=== PATIENT | male | born 1980 | race Caucasian/White ===

== ENCOUNTER 2025-08-16 13:59 | Emergency (ER) | payer OTHER, SELFPAY ==
[2025-08-16 14:09] VITALS: BP 156/86
[2025-08-16 14:35] LABS: Hematocrit 36.0 % (39.0-52.0); Hemoglobin 12.3 g/dL (13.0-18.0); Mean Corp Hgb Conc. 34.2 g/dL (33.0-37.0); Mean Corpuscular Volume 82.4 fL (80.0-94.0); Nucleated Red Blood Cells % 0 % (-); Platelet Count 350 10^3/uL (130-400); Red Cell Dist. Width 12.1 % (11.5-14.5)
[2025-08-16 14:56] LABS: ALT (SGPT) 36 U/L (0-50); AST (SGOT) 24 U/L (17-59); Albumin 4.6 g/dl (3.5-5.0); Alkaline Phosphatase 88 U/L (38-126); Blood Urea Nitrogen 16 mg/dl (9-20); Calcium 9.4 mg/dl (8.4-10.2); Carbon Dioxide 29 mmol/L (22-30); Chloride 98 mmol/L (98-107); Glucose 231 mg/dl (70-99); Potassium 4.2 mmol/L (3.5-5.1); Sodium 136 mmol/L (135-145); Total Protein 7.2 g/dl (6.3-8.2); eGFR > 60.00
[2025-08-16 15:05] LABS: Troponin I < 0.012 ng/ml
[2025-08-16 18:13] LABS: D-Dimer 0.33 ug/mlFEU (0.00-0.50)
[2025-08-16] MEDS: DUONEB 3 ML INH (18:13)
--- NOTE | 2025-08-16 19:18 | ED.GENMED ---
History of Present Illness
General
Chief Complaint: Breathing Problem
Source: patient
Time Seen by Provider: 08/16/25 16:30
History of Present Illness
History of Present Illness:
Note:
CHIEF COMPLAINT(S)
Difficulty breathing.
HISTORY OF PRESENT ILLNESS
The patient is a 44-year-old male with a history of asthma, presenting with difficulty breathing. He reports that this occurs occasionally, often around this time of the year, and he last experienced similar symptoms in 2019. During that episode,
his typical treatment with a nebulizer using albuterol was ineffective, but he found relief with a steroid prescription. This time, he saw a new doctor who noted that his pulse oximetry readings were low and his heart rate was slightly elevated,
prompting a referral to rule out a pulmonary embolism. The patient also mentions experiencing a 'copper taste' during physical activities in the past, which is not currently accompanied by symptoms such as hemoptysis, pleuritic chest pain, or signs
of a deep vein thrombosis.
PAST MEDICAL AND SURGICAL HISTORY
The patient has a history of asthma, as noted, and was diagnosed with type 1 diabetes four years ago.
CHRONIC MEDICAL CONDITIONS SIGNIFICANTLY AFFECTING CARE
The patient has poorly controlled type 1 diabetes, as he describes struggling to effectively manage the condition. He monitors his blood glucose frequently but is not currently using an insulin pump, despite expressing interest.
SOCIAL HISTORY
The patient admits to previous smoking and notes he has quit smoking cigarettes.
REVIEW OF SYSTEMS
- Respiratory: Difficulty breathing, history of asthma, bilateral wheezing noted.
- Cardiovascular: No reports of chest pain or signs of deep vein thrombosis.
- General: No recent travel reported, denies signs like hemoptysis or unexplained swelling.
- Gastrointestinal: Reports a copper taste frequently experienced during physical exertion.
PHYSICAL EXAM
General: Alert, no acute distress.
Skin: Warm, dry.
Head: Normocephalic, atraumatic.
Neck: Supple, trachea midline.
Eye Ears, nose, mouth and throat: Oral mucosa moist.
Cardiovascular: Heart rate noted as 80s, no significant murmurs, no edema.
Respiratory: Bilateral wheezing present, respirations are non-labored.
Gastrointestinal: Abdomen nondistended.
Back: Normal range of motion, normal alignment.
Musculoskeletal: Normal range of motion, normal strength.
Neurological: Alert and oriented to person, place, time, and situation, no focal neurological deficit observed.
Psychiatric: Cooperative, appropriate mood and affect.
PROBLEM LIST
- Acute: Difficulty breathing, potential pulmonary embolism.
- Chronic: Type 1 diabetes, asthma.
PLAN
1. Perform a D-dimer blood test to rule out pulmonary embolism.
2. Administer breathing treatments to relieve wheezing and assess for improvement.
3. Monitor blood glucose levels, especially with concurrent steroid administration prescribed by the patients doctor.
4. Discuss and consider further management of diabetes, including potential benefits of insulin pump therapy and the importance of exercise.
DIFFERENTIAL DIAGNOSIS
The Differential Diagnosis includes, in no particular order and is not limited to:
1. Asthma exacerbation
2. Chronic Obstructive Pulmonary Disease (COPD) exacerbation
3. Pulmonary embolism
4. Bronchitis
5. Pneumonia
6. Heart failure
7. Gastroesophageal reflux disease (GERD)
8. Foreign body aspiration
9. Anxiety-related dyspnea
10. Interstitial lung disease
Disposition:
SUMMARY OF ENCOUNTER
The patient, a 44-year-old male with a known history of asthma, presented to the emergency department with difficulty breathing. Despite initial concerns about a potential pulmonary embolism (PE), the patient had a negative D-dimer test and was
unlikely to have a PE based on clinical presentation and auscultation revealing wheezing. While awaiting chest x-ray results, the patient decided to leave; however, the chest x-ray showed no concerning abnormalities. A message was left for the
patient, noting that he had already been prescribed steroids by his primary care physician. Laboratory results were largely normal except for hyperglycemia, which aligns with his known history of diabetes.
DISPOSITION
Discharge
ASSESSMENT
The patient is experiencing an asthma exacerbation complicated by poorly controlled diabetes.
PLAN
Follow-up with primary care physician to monitor asthma and diabetes management. Continue prescribed steroid treatment and use of albuterol inhaler as needed. Advise the patient to maintain regular follow-ups for diabetes management, potentially
exploring the use of an insulin pump.
INDEPENDENT REVIEW OF LABS AND INTERPRETATION OF TESTS
My independent review of CBC indicates a normal white blood cell count of 8.6 and hemoglobin 12.3. The chemistry panel shows hyperglycemia at 231 mg/dL.
MEDICAL DECISION MAKING
-Number and Complexity of Problems Addressed: Chronic conditions affecting care include asthma and type 1 diabetes. The differential diagnosis includes asthma exacerbation, chronic obstructive pulmonary disease (COPD) exacerbation, pulmonary
embolism, bronchitis, pneumonia, heart failure, gastroesophageal reflux disease (GERD), foreign body aspiration, anxiety-related dyspnea, and interstitial lung disease.
-Data:
Category 1
My independent interpretation of the chest x-ray indicates no concerning abnormalities despite the patients premature departure.
My independent review of labs shows a normal white blood cell count and hemoglobin, with noted hyperglycemia, likely related to the patients known diabetic condition.
-Risk:
Consideration of Admission/Observation: Escalation of care including admission/observation was considered given the complexity and risk of the patients presenting complaint, exam findings, and underlying comorbidities. However, ultimately, I feel
the patient is safe for outpatient management with close follow-up. Reasoning: Work-up reassuring, does not reveal any acute life/organ-threatening processes, patients symptoms well-controlled upon reevaluation, reexamination is reassuring, vitals
are stable, patient agreeable with discharge, reliable for follow-up.
DIAGNOSIS
- Asthma exacerbation (J45.901)
- Type 1 diabetes mellitus with hyperglycemia (E10.65)
Past History
Past History
ED Past Medical History: Asthma, IDDM and Psychiatric (Depression)
ED Past Surgical History: None
Social History
Personal: Single
Phy Exam
Physical Exam
Physical Exam:
.
Course
Orders/Labs/Results
Orders:
Orders
08/16/25 14:13
Electrocardiogram (*1) Urgent
Reason for Study: Other
Other Reason for Exam: Respiratory Distress
EKG- Treatment ONCE
CR Chest - 2 Views Urgent
Comment:
Reason For Exam: respiratory distress
08/16/25 14:20
Complete Blood Count/With Diff Urgent
Comprehensive Metabolic Panel Urgent
NT-proBNP Stat
Troponin I Urgent
08/16/25 17:40
Ipratropium/Albuterol Sulfate [Duoneb] 3 ml INH R NOW STA
08/16/25 17:48
D-Dimer Urgent
Abnormal Lab Results
08/16/25
14:20
RBC 4.37 L 10^6/uL
(4.70-6.10)
Hgb 12.3 L g/dL
(13.0-18.0)
Hct 36.0 L %
(39.0-52.0)
Absolute Monos (auto) 0.7 H 10^3/uL
(0.1-0.6)
Absolute Eos (auto) 0.9 H 10^3/uL
(0-0.7)
Lymphocytes % 19.2 L %
(20.5-51.1)
Eosinophils % 10.2 H %
(0-6)
Glucose 231 H mg/dl
(70-99)
08/16/25 14:20
08/16/25 14:20
Vital Signs
Initial and Last Documented VS:
Initial Vital Signs
Pulse Resp BP Pulse Ox
98 16 156/86 98
08/16/25 14:09 08/16/25 14:08/16/25 14:09 08/16/25 14:09
Last Documented Vital Signs
Pulse Resp BP Pulse Ox
98 16 156/86 98
08/16/25 14:08/16/25 14:09 08/16/25 14:09 08/16/25 14:09
*Pulse Oximetry
SaO2: 98
Oxygen Mode of Delivery: Room air
Patient hypoxic: no
*Critical Care Note
Total Time (30-74mins, 75-104mins- exclusive of procedures): Not Applicable
ED Attending Note
-
Portions of this chart may have been created with voice recognition software.� Occasional wrong word or��sound alike� substitutions may have occurred due to the inherent limitations of voice recognition software.
Discharge Plan
Departure
Patient Disposition: Home (Routine Discharge)
Date of Disposition: 08/16/25
Time of Disposition: 19:21
Patient with high blood pressure during this ER visit?: Yes
Discharge Problem:
Exacerbation of reactive airway disease
Prescriptions:
No Action
omeprazole 40 MG capsule,delayed release(DR/EC)
40 mg PO DAILY
methadone [Methadose] 10 MG/ML concentrate
230 mg PO DAILY
Patient Comments:
03/02/18: dose confirmed with [facility] [phone]
albuterol sulfate 1 PUFF HFA aerosol inhaler
2 puff inhalation R Q4HPRN PRN (Reason: sob)
insulin glargine [Lantus U-100 Insulin] 100 UNIT/ML solution
50 units SC HS
insulin lispro [Admelog U-100 Insulin lispro] 100 UNIT/ML solution
10 - 15 unit SC TID
Wixela
1 puff inhalation BID
prednisone 50 MG tablet
50 mg PO DAILY Qty: 5 0RF
albuterol sulfate 1 PUFF HFA aerosol inhaler
2 puff inhalation R Q4HPRN PRN (Reason: shortness of breath, wheeze) Qty: 1 0RF
prednisone 10 MG tablet
10 mg PO .TAPER Qty: 30 0RF
Rx Instructions:
Take 40mg daily x3days, 30mg daily x3days,
20mg daily x3days, 10mg daily x3days.
ipratropium-albuterol 3 ML solution for nebulization
3 ml inhalation QID Qty: 60 0RF
doxycycline hyclate 100 MG capsule
100 mg PO Q12 Qty: 20 0RF
Referrals:
Katherin Howard NP [Family Provider, Family Practice]
Interventions
Interventions:
*Risk Screen - Suicide Last Done: 08/16/25 14:09
*Neglect/Abuse Screening Last Done: 08/16/25 14:09
Discharge Date and Time
Print Language: TAJIK
== END 2025-08-16 19:37 | disposition home or self-care (01) ==
LOC: EMR 13:59
PROVIDERS: Student in an Organized Health Care Education/Training Program; EMERGENCY PHYSICIAN Emergency Medicine; FAMILY PHYSICIAN Nurse Practitioner Family
DX: J45.901 Unspecified asthma with (acute) exacerbation (principal); E10.65 Type 1 diabetes mellitus with hyperglycemia; Z87.891 Personal history of nicotine dependence; Z79.4 Long term (current) use of insulin
CPT/HCPCS: 99284; 94640; 80053; 83880; 84484; 85025; 85379; 93005